=== PATIENT | male | born 1950 | race Caucasian/White ===

== ENCOUNTER 2018-05-21 11:16 | Outpatient (REF) | payer MEDICARE, BC, SELFPAY ==
[2018-05-21 19:58] LABS: Cholesterol 172 mg/dL (50-200); Glucose 83 mg/dL (70-100); HDL Cholesterol 76 mg/dL (40-60); LDL CHOLESTEROL 88 mg/dL (<100); Triglyceride 48 mg/dL (30-150)
== END 2018-05-21 11:36 ==
LOC: NCHCN 11:16
PROVIDERS: PCP Internal Medicine; Visit Provider Internal Medicine
DX: E78.5 Hyperlipidemia, unspecified (principal); Z13.1 Encounter for screening for diabetes mellitus
CPT/HCPCS: 80061; 82947; 83721

== ENCOUNTER 2019-02-28 16:08 | Outpatient (REF) | payer MEDICARE, BC, SELFPAY ==
[2019-02-28 21:59] LABS: Absolute Basophil Count 0.02 k/cumm (0.0-0.2); Absolute Eosinophil Count 0.17 k/cumm (0.0-0.7); Absolute Lymphocyte Count 1.16 k/cumm (1.2-3.4); Absolute Monocyte Count 0.41 k/cumm (0.11-0.7); Absolute Neutrophil Count 2.66 k/cumm (1.2-6.7); Basophils % 0.5; Eosinophils % 3.8; HCT 41.6 % (40.0-50.0); HGB 14.1 g/dL (13.5-17.5); Lymphocytes % 26.2; Mean Corp. HGB Concentration 33.9 g/dL (32.0-36.0); Mean Corpuscular Hemoglobin 32.9 pg (27.0-33.0); Mean Platelet Volume 10.3 fL (8.0-11.0); Monocytes % 9.3; Neutrophils % 60.2; Platelet Count 249 x1000/uL (130-400); RBC 4.29 m/cumm (4.50-6.00); RBC Distribution Width 13.2 % (11.8-14.1); White Blood Cell Count 4.42 k/cumm (4.4-10.8)
[2019-02-28 22:21] LABS: ALT 33 U/L (12-78); AST 22 U/L (15-37); Albumin 3.7 g/dL (3.4-5.0); Alkaline Phosphatase 89 U/L (46-116); Anion Gap 11.9 mmol/L (3-11); BUN 12 mg/dL (7-18); Bilirubin, Total 0.4 mg/dL (0.2-1.0); CO2 27.1 mmol/L (21.0-32.0); CREATININE 0.74 mg/dL (0.70-1.30); Calcium 9.1 mg/dL (8.5-10.1); Chloride 103 mmol/L (98-107); Glucose 93 mg/dL (70-100); Sodium 142 mmol/L (136-145); TSH 2.68 uIU/mL (0.358-3.74); Total Protein 7.1 g/dL (6.4-8.2); Uric Acid 4.4 mg/dL (3.5-7.2)
== END 2019-02-28 16:28 ==
LOC: NCHCN 16:08
PROVIDERS: PCP Internal Medicine; Visit Provider Nurse Practitioner Family
DX: K59.00 Constipation, unspecified (principal); M79.671 Pain in right foot; R14.0 Abdominal distension (gaseous)
CPT/HCPCS: 80053; 84443; 84550; 85025

== ENCOUNTER 2019-06-17 09:32 | Outpatient (REF) | payer MEDICARE, BC, SELFPAY ==
[2019-06-17 21:30] LABS: Calculated LDL 70 mg/dL; Cholesterol 152 mg/dL (50-200); HDL Cholesterol 71 mg/dL (40-60); Triglyceride 55 mg/dL (30-150)
== END 2019-06-17 09:52 ==
LOC: NCHCN 09:32
PROVIDERS: PCP Internal Medicine; Visit Provider Internal Medicine
DX: E78.5 Hyperlipidemia, unspecified (principal)
CPT/HCPCS: 80061

== ENCOUNTER 2020-05-14 07:58 | Outpatient (REF) | payer MEDICARE, BC, SELFPAY ==
[2020-05-14 21:36] LABS: Calculated LDL 144 mg/dL (<100); Cholesterol 227 mg/dL (<200); HDL Cholesterol 69 mg/dL (40-60); Triglyceride 70 mg/dL (<150)
== END 2020-05-14 08:18 ==
LOC: NCHCN 07:58
PROVIDERS: PCP Internal Medicine; Visit Provider Internal Medicine
DX: E78.5 Hyperlipidemia, unspecified (principal)
CPT/HCPCS: 80061

== ENCOUNTER 2021-03-22 18:20 | Outpatient (REF) | payer MEDICARE, BC, SELFPAY ==
[2021-03-22 20:59] LABS: HCT 40.1 % (40.0-50.0); HGB 13.6 g/dL (13.5-17.5); MCHC 33.9 % (32.0-36.0); MCV 97.3 fL (80-95); MPV 10.3 fL (8.0-11.0); Platelet Count 203 10^3/uL (130-400); RBC 4.12 10^6/uL (4.36-5.78); RDW 12.8 % (11.8-14.1); RDW-SD 45.7 fL
[2021-03-22 21:05] LABS: ALT 25 U/L (16-63); AST 19 U/L (15-37); Albumin 3.6 g/dL (3.4-5.0); Alkaline Phosphatase 75 U/L (46-116); Anion Gap 8.9 mmol/L (3-11); BUN 11 mg/dL (7-18); Bilirubin, Total 0.5 mg/dL (0.2-1.0); CO2 28.1 mmol/L (21.0-32.0); CREATININE 0.9 mg/dL (0.70-1.30); Calcium 8.8 mg/dL (8.5-10.1); Chloride 105 mmol/L (98-107); Glucose 93 mg/dL (74-106); Potassium 4.1 mmol/L (3.5-5.1); Sodium 142 mmol/L (136-145); Total Protein 6.7 g/dL (6.4-8.2)
== END 2021-03-22 18:21 | disposition home or self-care (01) ==
LOC: NCHCN 18:20
PROVIDERS: PCP Internal Medicine; Visit Provider Internal Medicine
DX: K59.00 Constipation, unspecified (principal)
CPT/HCPCS: 80053; 85027; 84443

== ENCOUNTER 2021-04-19 14:33 | Outpatient (REF) | payer MEDICARE, BC, SELFPAY ==
[2021-04-19 14:54] LABS: Bilirubin Negative (Negative); Blood Negative (Negative); Clarity Clear (Clear); Glucose Negative (Negative); Ketones Negative (Negative); Leukocyte Esterase Negative (Negative); Nitrite Negative (Negative); pH 7.5 (5-8)
[2021-04-19 15:06] LABS: Calculated LDL 80 mg/dL (<100); Cholesterol 157 mg/dL (<200); HDL Cholesterol 61 mg/dL (40-60); Triglyceride 80 mg/dL (<150)
[2021-04-19 22:47] LABS: PSA, Screening 1.8 ng/mL (0.0-4.5)
== END 2021-04-19 14:34 | disposition home or self-care (01) ==
LOC: NCHCN 14:33
PROVIDERS: PCP Internal Medicine; Visit Provider Internal Medicine
DX: E78.5 Hyperlipidemia, unspecified (principal); K59.00 Constipation, unspecified; N40.0 Benign prostatic hyperplasia without lower urinary tract symptoms; Z12.5 Encounter for screening for malignant neoplasm of prostate
CPT/HCPCS: 80061; 84153; 81003

== ENCOUNTER 2022-04-29 18:27 | Outpatient (REF) | payer MEDICARE, BC, SELFPAY ==
[2022-04-29 20:53] LABS: TSH 2.58 uIU/mL (0.36-3.74)
== END 2022-04-29 18:28 | disposition home or self-care (01) ==
LOC: NCHCN 18:27
PROVIDERS: PCP Internal Medicine; Visit Provider Internal Medicine
DX: R14.0 Abdominal distension (gaseous) (principal); K59.00 Constipation, unspecified
CPT/HCPCS: 84443

== ENCOUNTER 2022-05-15 16:30 | Outpatient (REF) | payer MEDICARE, BC, SELFPAY | END 2022-05-15 16:31 | disposition home or self-care (01) | LOC: NCHCN 16:30 | PROVIDERS: PCP Internal Medicine; Visit Provider Nurse Practitioner Family | DX: M99.80 Other biomechanical lesions of head region (principal); L98.9 Disorder of the skin and subcutaneous tissue, unspecified | CPT/HCPCS: 87070; 87205 ==

== ENCOUNTER 2022-06-02 18:17 | Outpatient (REF) | payer MEDICARE, BC, SELFPAY ==
[2022-06-04 19:39] LABS: HSV 1 DNA Result Negative (Negative); HSV 2 DNA Result Negative (Negative); Varicella Zoster DNA Result Negative ((See Note))
== END 2022-06-02 18:18 | disposition home or self-care (01) ==
LOC: NCHCN 18:17
PROVIDERS: PCP Internal Medicine; Visit Provider Internal Medicine
DX: L98.9 Disorder of the skin and subcutaneous tissue, unspecified (principal)
CPT/HCPCS: 87529; 87798

== ENCOUNTER 2023-03-05 13:10 | Outpatient (REF) | payer MEDICARE, BC, SELFPAY ==
[2023-03-05 14:26] LABS: Abs Immature Grans 0.01 10^3/uL (0.0-0.06); Absolute Basophil Count 0.03 10^3/uL (0.0-0.2); Absolute Eosinophil Count 0.25 10^3/uL (0.0-0.7); Absolute Lymphocyte Count 1.09 10^3/uL (1.2-3.4); Absolute Monocyte Count 0.38 10^3/uL (0.1-0.8); Absolute Neutrophil Count 2.48 10^3/uL (1.2-6.7); Basophils % 0.7; Eosinophils % 5.9; HCT 42.1 % (40.0-50.0); HGB 14.4 g/dL (13.5-17.5); Immature Grans % 0.2; Lymphocytes % 25.7; MCH 33.4 pg (27.0-33.0); MCHC 34.2 % (32.0-36.0); MCV 98 fL (80-95); MPV 9.6 fL (8.0-11.0); Neutrophils % 58.5; Platelet Count 224 10^3/uL (130-400); RBC 4.31 10^6/uL (4.36-5.78); RDW 13.1 % (11.8-14.1); RDW-SD 47.2 fL; WBC 4.24 10^3/uL (4.4-10.8)
[2023-03-05 14:28] LABS: ESR 10 mm/hr (0-20)
[2023-03-05 14:49] LABS: ALT 36 U/L (16-63); AST 29 U/L (15-37); Albumin 3.7 g/dL (3.4-5.0); Alkaline Phosphatase 92 U/L (46-116); Anion Gap 3.9 mmol/L (3-11); BUN 12 mg/dL (7-18); Bilirubin, Total 0.5 mg/dL (0.2-1.0); C-Reactive Protein 0.15 mg/dL (0.0-0.3); CO2 32.1 mmol/L (21.0-32.0); CREATININE 0.9 mg/dL (0.70-1.30); Calcium 9.2 mg/dL (8.5-10.1); Chloride 106 mmol/L (98-107); Estimated GFR 91.88 (mL/min/1.73m2); Glucose 80 mg/dL (74-106); Potassium 4.4 mmol/L (3.5-5.1); Sodium 142 mmol/L (136-145); Total Protein 7.4 g/dL (6.4-8.2); Uric Acid 4.9 mg/dL (3.5-7.2)
[2023-03-06 11:38] LABS: Lyme Ab w Rflx to Lyme Confirm Negative (Negative)
[2023-03-08 17:52] LABS: Anaplasma phagocytophilum Negative (Negative); B. miyamotoi PCR Negative (Negative); Babesia divergens/MO-1 Negative (Negative); Babesia duncani Negative (Negative); Babesia microti Negative (Negative); Ehrlichia chaffeensis Negative (Negative); Ehrlichia ewingii/canis Negative (Negative); Ehrlichia muris eauclairensis Negative (Negative)
== END 2023-03-05 13:11 | disposition home or self-care (01) ==
LOC: NCHCN 13:10
PROVIDERS: PCP Internal Medicine; Visit Provider Family Medicine
DX: M79.673 Pain in unspecified foot (principal)
CPT/HCPCS: 80053; 85652; 87798; 84550; 85025; 86140; 86618

== ENCOUNTER 2023-05-01 13:17 | Outpatient (REF) | payer MEDICARE, BC, SELFPAY ==
[2023-05-01 21:15] LABS: ESR 11 mm/hr (0-20)
[2023-05-01 21:54] LABS: TSH 2.18 uIU/mL (0.36-3.74); Vitamin B12 296 pg/mL (193-986)
[2023-05-04 10:41] LABS: Hepatitis C Ab w Rflx HCV PCR Negative (Negative)
[2023-05-04 12:54] LABS: Lyme Ab w Rflx to Lyme Confirm Negative (Negative)
[2023-05-04 13:33] LABS: Albumin 59.1 % (55.8-66.1); Albumin g/dL 4.3 g/dL (3.6-5.2); Total Protein 7.3 g/dL (6.3-8.2)
[2023-05-04 15:53] LABS: ANA Interpretation Negative (Negative)
== END 2023-05-01 13:18 | disposition home or self-care (01) ==
LOC: NCHCN 13:17
PROVIDERS: PCP Internal Medicine; Visit Provider Internal Medicine
DX: G62.9 Polyneuropathy, unspecified (principal)
CPT/HCPCS: 85652; 86803; 82607; 84165; 84443; 86038; 86618

== ENCOUNTER 2023-05-06 10:03 | Outpatient (REF) | payer MEDICARE, BC, SELFPAY ==
[2023-05-08 15:16] LABS: Albumin, Urine % 16.9 %; Albumin, Urine mg/dL <1 mg/dL; Globulins, Urine % 83.1 %; Globulins, Urine mg/dL <4 mg/dL; Immunotyping, Urine (See Note); Total Protein Urine <5 mg/dL (See Note)
== END 2023-05-06 10:04 | disposition home or self-care (01) ==
LOC: NCHCN 10:03
PROVIDERS: PCP Internal Medicine; Visit Provider Internal Medicine
DX: G62.9 Polyneuropathy, unspecified (principal)
CPT/HCPCS: 84156; 84166; 86335

== ENCOUNTER 2024-07-19 08:19 | Outpatient (REF) | payer MEDICARE, BC, SELFPAY ==
[2024-07-19 15:38] LABS: HCT 43.8 % (40.0-50.0); HGB 14.8 g/dL (13.5-17.5); MCH 33.3 pg (27.0-33.0); MCHC 33.8 % (32.0-36.0); MCV 99 fL (80-95); MPV 9.7 fL (8.0-11.0); Platelet Count 229 10^3/uL (130-400); RBC 4.44 10^6/uL (4.36-5.78); RDW-SD 47.7 fL; WBC 4.58 10^3/uL (4.4-10.8)
[2024-07-19 16:02] LABS: ALT 26 U/L (16-63); AST 23 U/L (15-37); Albumin 3.6 g/dL (3.4-5.0); Alkaline Phosphatase 88 U/L (46-116); Anion Gap 6.8 mmol/L (3-11); BUN 13 mg/dL (7-18); Bilirubin, Total 0.63 mg/dL (0.2-1.0); CO2 29.2 mmol/L (21.0-32.0); Calcium 9.2 mg/dL (8.5-10.1); Calculated LDL 141 mg/dL (<100); Chloride 106 mmol/L (98-107); Cholesterol 232 mg/dL (<200); Estimated GFR 80.47 (mL/min/1.73m2); Glucose 88 mg/dL (74-106); HDL Cholesterol 68 mg/dL (40-60); Potassium 4.3 mmol/L (3.5-5.1); Sodium 142 mmol/L (136-145); Total Protein 7.2 g/dL (6.4-8.2); Triglyceride 116 mg/dL (<150)
== END 2024-07-19 08:20 | disposition home or self-care (01) ==
LOC: NCHCN 08:19
PROVIDERS: PCP Internal Medicine; Visit Provider Internal Medicine
DX: E78.5 Hyperlipidemia, unspecified (principal); R53.83 Other fatigue
CPT/HCPCS: 80053; 80061; 85027

== ENCOUNTER 2024-08-10 13:53 | Outpatient (REF) | payer MEDICARE, BC, SELFPAY ==
[2024-08-15 09:59] LABS: Lyme Ab w Rflx to Lyme Confirm Negative (Negative)
== END 2024-08-10 13:54 | disposition home or self-care (01) ==
LOC: NCHCN 13:53
PROVIDERS: PCP Internal Medicine; Visit Provider Family Medicine
DX: M25.59 Pain in other specified joint (principal)
CPT/HCPCS: 86618